=== PATIENT | male | born 1980 | race Caucasian/White ===

== ENCOUNTER 2023-03-16 16:57 | Emergency (ER) | payer MEDICAID ==
[~2023-03-16] VITALS: Ht 170.2 cm; Wt 77.1 kg
[2023-03-16 17:56] VITALS: BP_SYST 112
[2023-03-16] MEDS ORDERED: CEPH-548 PO (18:22)
[2023-03-16] MEDS ORDERED: ACET325T53 PO (18:22)
== END 2023-03-16 19:19 | disposition home or self-care (01) ==
LOC: SED 16:57
DX: L03.316 Cellulitis of umbilicus (principal); R10.33 Periumbilical pain; F17.200 Nicotine dependence, unspecified, uncomplicated; Z79.899 Other long term (current) drug therapy
CPT/HCPCS: 99283